=== PATIENT | female | born 1990 | race Caucasian/White ===

== ENCOUNTER 2018-08-27 18:14 | Emergency (ER) | payer MEDICAID ==
[~2018-08-27] VITALS: Ht 170.2 cm; Wt 95.8 kg
[~2018-08-27 18:14] MED LIST: CLA10T PO; CLIN-96 PO; GABA-341 PO; HYDR-569 PO; ONDA4TAB59 PO
[2018-08-27 18:28] VITALS: BP 113/63
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
[2018-08-27] MEDS ORDERED: rabies vaccine (PCEC)/PF 2.5 unit kit IM ONE (19:25)
[2018-08-27] MEDS ORDERED: rabies immune globulin/PF 150 unit/ml inj IM ONE (19:25)
== END 2018-08-27 21:37 | disposition home or self-care (01) ==
LOC: ER 18:14
DX: Z20.3 Contact with and (suspected) exposure to rabies (principal); Z90.49 Acquired absence of other specified parts of digestive tract; Z98.890 Other specified postprocedural states; Z56.0 Unemployment, unspecified; Z88.0 Allergy status to penicillin; Z88.5 Allergy status to narcotic agent; Z88.1 Allergy status to other antibiotic agents; Z88.8 Allergy status to other drugs, medicaments and biological substances; Z88.2 Allergy status to sulfonamides; Z79.899 Other long term (current) drug therapy
CPT/HCPCS: 90375; 90471; 90675; 99283

== ENCOUNTER 2020-08-12 14:29 | Emergency (ER) | payer MEDICAID ==
[~2020-08-12] VITALS: Ht 167.6 cm; Wt 72.7 kg
[~2020-08-12 14:29] MED LIST changes: -CLIN-96 PO; +CLIN-97 PO
[2020-08-12 16:14] VITALS: BP 103/67
--- NOTE | 2020-08-12 16:25 | NUR ---
PATIENT GOT UP AND WALKED OUT OF ROOM, THOUGHT SHE WAS COMING BACK, BUT STATED SHE LEFT.
== END 2020-08-12 16:36 | disposition left against medical advice (07) ==
LOC: ER 14:30
DX: S93.492A Sprain of other ligament of left ankle, initial encounter (principal); F41.9 Anxiety disorder, unspecified; F32.9 Major depressive disorder, single episode, unspecified; Z90.49 Acquired absence of other specified parts of digestive tract; Z98.890 Other specified postprocedural states; Z72.89 Other problems related to lifestyle; Z56.0 Unemployment, unspecified; Z88.0 Allergy status to penicillin; Z88.5 Allergy status to narcotic agent; Z88.8 Allergy status to other drugs, medicaments and biological substances; Z79.899 Other long term (current) drug therapy; Z88.2 Allergy status to sulfonamides; W22.8XXA Striking against or struck by other objects, initial encounter; Y93.89 Activity, other specified; Y92.89 Other specified places as the place of occurrence of the external cause; Y99.8 Other external cause status
CPT/HCPCS: 73610; 99284

== ENCOUNTER 2023-05-16 15:06 | Emergency (ER) | payer MEDICAID ==
[~2023-05-16] VITALS: Ht 170.2 cm; Wt 80.1 kg
[2023-05-16 15:10] VITALS: BP 138/62; PULSE 92; RESP 18; O2SAT 98
[2023-05-16] MEDS ORDERED: NAPR-56 PO (15:40)
[2023-05-16] MEDS ORDERED: CLIN300C54 PO (15:40)
[2023-05-16 16:12] VITALS: TEMP 97.8
== END 2023-05-16 16:15 | disposition home or self-care (01) ==
LOC: ER 15:07
DX: L02.01 Cutaneous abscess of face (principal); F31.9 Bipolar disorder, unspecified; Z56.0 Unemployment, unspecified; Z88.1 Allergy status to other antibiotic agents; Z88.5 Allergy status to narcotic agent; Z79.899 Other long term (current) drug therapy
CPT/HCPCS: 99283